=== PATIENT | female | born 1955 | race Caucasian/White ===

== ENCOUNTER 2018-11-09 10:26 | Emergency (ER) | payer BC ==
[~2018-11-09] VITALS: Ht 165.1 cm; Wt 88.5 kg
--- NOTE | 2018-11-09 10:34 | NUR ---
ED Nurse Note: Pt came in from home due to R foot pain due to kicking metal bench 2 weeks ago. Pain 8/10 cindy. Dosalis Pedis pulse present. AOx4, VSS cindy. Will cont to monitor.
[2018-11-09] MEDS ORDERED: ACETAMINOPHEN-1 EAC1 ORAL (11:38)
--- NOTE | 2018-11-09 11:42 | Diagnostic Imaging Report ---
ADDENDUM - Added by Srinivas Littlejohn M.D. on 11/09/2018 12:25 PM (-07:00) FINDINGS/IMPRESSION Longitudinal fracture of the medial base of the fifth metatarsal with extension into the fifth metatarsal phalangeal joint space. RIGHT FOOT, Views INDICATION: Pain COMPARISON: None FINDINGS: 3 views of the right foot are obtained. Severe joint space narrowing at the first metatarsophalangeal joint space with osteophytosis. Bone mineralization is within normal limits. No acute fracture. Soft tissues within normal limits. No radio-opaque foreign bodies. IMPRESSION: No acute fracture or subluxation identified. 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
[2018-11-09 11:50] VITALS: BP 121/75
--- NOTE | 2018-11-09 11:50 | NUR ---
ER DISCHARGE NOTE: Patient is cleared to be discharged per ERMD, pt is aox4, on room air, with stable vital signs. pt was given dc and prescription instructions, pt was able to verbalize understanding, pt id band removed. pt is able to ambulate with steady gait. pt took all belongings.
--- NOTE | 2018-11-09 13:17 | Emergency Room Report ---
History of Present Illness General Chief Complaint: Lower Extremity Injury Source: Patient Present Illness HPI 63-year-old female presents ED for evaluation. Patient complaining of pain and bruising to the right big toe. States that 2 weeks ago she accidentally kicked a metal table and has had persistent pain since. Pain is throbbing, 8 out of 10 , nonradiating. Is able to bear weight. Denies any other injuries. No other aggravating relieving factors. The any other associated symptoms Allergies: Coded Allergies: No Known Allergies (Unverified , 11/09/18) Patient History Past Medical History: HTN, GERD Past Surgical History: none Pertinent Family History: none Social History: Denies: smoking, alcohol use, drug use Last Menstrual Period: 20 years ago Now: No Immunizations: UTD Reviewed Nursing Documentation: PMH: Agreed; PSxH: Agreed Nursing Documentation-PMH Past Medical History: No History, Except For Hx Hypertension: Yes Hx Gastrointestinal Problems: Yes - GERD Review of Systems All Other Systems: negative except mentioned in HPI Physical Exam Vital Signs Date Time Temp Pulse Resp B/P (MAP) Pulse Ox O2 Delivery O2 Flow Rate FiO2 11/09/18 10:28 98.2 100 15 127/71 (89) 96 Room Air Sp02 EP Interpretation: reviewed, normal General Appearance: no apparent distress, alert, GCS 15, non-toxic Head: normocephalic Eyes: bilateral eye normal inspection, bilateral eye PERRL ENT: normal ENT inspection Neck: normal inspection Respiratory: normal inspection Cardiovascular #1: normal inspection Gastrointestinal: normal inspection Rectal: deferred Genitourinary: no CVA tenderness Musculoskeletal: tender - R small toe pain/swelling Neurologic: alert, oriented x3, responsive, motor strength/tone normal, sensory intact, speech normal Psychiatric: normal inspection Skin: normal inspection Lymphatic: normal inspection Procedures Splinting Splinting : Consent: Verbal Pre-Made Type: cast shoe Pre-Proc Neuro Vasc Exam: normal Post-Proc Neuro Vasc Exam: normal Patient Tolerated: Well Complications: None Medical Decision Making Diagnostic Impression: Primary Impression: Toe fracture Qualified Codes: S92.514A - Nondisplaced fracture of proximal phalanx of right lesser toe(s), initial encounter for closed fracture ER Course Hospital Course 63-year-old F presents with R small toe pain Differential diagnoses include: Fracture, dislocation, sprain, contusion Clinical course Patient placed on stretcher. After initial history and physical, I ordered xrays of R foot Xrays read shows fx to base of 5th toe. Discussed findings with patient. Placed in cast shoe. Safe for discharge with close outpatient follow-up. We'll provide podiatry referrals. Recommend Cam Walker Diagnosis - toe fracture Stable and discharged to home with prescription for Tylenol #3. apply ice, keep elevated. weight bear as tolerated. Followup with podiatry. Return to ED if symptoms recur or worsen Other X-Ray Diagnostic Results Other X-Ray Diagnostic Results : X-Ray ordered: R foot # of Views/Limited Vs Complete: 3 View Indication: Pain EP Interpretation: Yes Interpretation: no dislocation, no soft tissue swelling, other - 5th toe fx Impression: Other - 5th toe fx Electronically Signed by: Electronically signed by Noam Herbert MD Last Vital Signs Date Time Temp Pulse Resp B/P (MAP) Pulse Ox O2 Delivery O2 Flow Rate FiO2 11/09/18 11:50 98.2 79 20 121/75 96 Room Air Status: improved Disposition: HOME, SELF-CARE Condition: Stable Scripts Acetaminophen With Codeine (T#3) (TYLENOL #3 TAB*) Y Tab 1 TAB ORAL Q8H PRN for For Pain, #12 TAB Prov: Noam Herbert MD 11/09/18 Referrals: JACINDA LARA MD (PCP) Gabino Corrales DPM, BENJAMIN M.D. Patient Instructions: Toe Fracture, [id number] Noam Herbert MD Nov 09, 2018 13:17
== END 2018-11-09 13:11 | disposition home or self-care (01) ==
LOC: EMR 11:25
DX: S92.514A Nondisplaced fracture of proximal phalanx of right lesser toe(s), initial encounter for closed fracture (principal); W22.8XXA Striking against or struck by other objects, initial encounter; Y92.9 Unspecified place or not applicable; K21.9 Gastro-esophageal reflux disease without esophagitis; I10 Essential (primary) hypertension
CPT/HCPCS: 29515; 99283